=== PATIENT | female | born 1980 | race Two or more races ===

== ENCOUNTER 2017-02-22 15:54 | Emergency (ER) | payer SELFPAY ==
[~2017-02-22] VITALS: Ht 157.5 cm; Wt 54.4 kg
[2017-02-22 16:02] VITALS: BP 138/88
[2017-02-22 17:59] LABS: APPEARANCE,URINE CLEAR; KETONES,URINE NEGATIVE (NEGATIVE); LEUKOCYTE ESTERASE ,URINE NEGATIVE (NEGATIVE); NITRITE,URINE NEGATIVE (NEGATIVE); PH,URINE 6 (4.5-8.0); PROTEIN,URINE NEGATIVE (NEGATIVE); UROBILINOGEN,URINE NORMAL MG/DL (0.0-1.0)
[2017-02-22 18:04] LABS: EOSINOPHILS % (AUTO) 0.8 % (0.0-3.0); LYMPHOCYTES % (AUTO) 14.2 % (20.0-45.0); MEAN CORPUSCULAR HGB CONC 32.1 G/DL (32.0-36.0); MEAN CORPUSCULAR VOLUME 97 FL (80-99); MEAN PLATELET VOLUME 5.4 FL (6.5-10.1); MONOCYTES % (AUTO) 6.3 % (1.0-10.0); NEUTROPHILS % (AUTO) 77.7 % (45.0-75.0); PLATELET COUNT 386 K/UL (150-450); RED CELL DISTRIBUTION WIDTH 11.2 % (11.6-14.8)
[2017-02-22 18:05] LABS: RBC,URINE 0-2 /HPF (0 - 2); SQUAMOUS EPITHELIAL CELL,UR OCCASIONAL /LPF (NONE/OCC); WBC,URINE 0-2 /HPF (0 - 2)
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
[2017-02-22 19:02] LABS: ALANINE AMINOTRANSFERASE 24 U/L (12-78); ALCOHOL 25 mg/dL; ANION GAP 13 mmol/L (5-15); ASPARTATE AMINO TRANSFERASE 19 U/L (15-37); CALCIUM 9.3 MG/DL (8.5-10.1); CARBON DIOXIDE 22 MMOL/L (21-32); CHLORIDE 105 MMOL/L (98-107); CREATININE 0.6 MG/DL (0.55-1.30); GLOMERULAR FILTRATION RATE > 60 mL/min (>60); POTASSIUM 3.6 MMOL/L (3.5-5.1); SODIUM 140 MMOL/L (136-145)
[2017-02-22 19:05] LABS: ACETAMINOPHEN < 10 MCG/ML (10-30)
[2017-02-23 03:15] VITALS: BP 0/0
== END 2017-02-22 18:45 | disposition left against medical advice (07) ==
LOC: EDBD 15:54 → EMR 17:22
DX: F91.9 Conduct disorder, unspecified (principal); S80.12XA Contusion of left lower leg, initial encounter; S80.11XA Contusion of right lower leg, initial encounter; Y08.89XA Assault by other specified means, initial encounter; Y92.89 Other specified places as the place of occurrence of the external cause
CPT/HCPCS: 36415; 80053; 80307; 81003; 81025; 85025; 99284; G0480; 80329

== ENCOUNTER 2017-02-28 10:40 | Emergency (ER) | payer SELFPAY ==
[2017-02-28] VITALS (20 sets, daily range): BP systolic 128–144; BP diastolic 76–92
[~2017-02-28] VITALS: Ht 157.5 cm; Wt 56.7 kg
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
[2017-02-28] MEDS ORDERED: LORazepam Inj 2mg/ml 1ml IV ONE (16:15)
[2017-02-28 16:51] LABS: BASOPHILS % (AUTO) 1.1 % (0.0-2.0); EOSINOPHILS % (AUTO) 1.6 % (0.0-3.0); LYMPHOCYTES % (AUTO) 19.6 % (20.0-45.0); MEAN CORPUSCULAR HEMOGLOBIN 31.7 PG (27.0-31.0); MEAN CORPUSCULAR HGB CONC 32.8 G/DL (32.0-36.0); MEAN CORPUSCULAR VOLUME 96 FL (80-99); MONOCYTES % (AUTO) 7.9 % (1.0-10.0); NEUTROPHILS % (AUTO) 69.8 % (45.0-75.0); PLATELET COUNT 389 K/UL (150-450); RED CELL DISTRIBUTION WIDTH 11.5 % (11.6-14.8); WHITE BLOOD COUNT 10.1 K/UL (4.8-10.8)
[2017-02-28 17:11] LABS: ALANINE AMINOTRANSFERASE 22 U/L (12-78); ALBUMIN/GLOBULIN RATIO 0.9 (1.0-2.7); ANION GAP 10 mmol/L (5-15); ASPARTATE AMINO TRANSFERASE 15 U/L (15-37); CALCIUM 9.3 MG/DL (8.5-10.1); CARBON DIOXIDE 28 MMOL/L (21-32); CHLORIDE 105 MMOL/L (98-107); CREATININE 0.7 MG/DL (0.55-1.30); GLOMERULAR FILTRATION RATE > 60 mL/min (>60); SODIUM 143 MMOL/L (136-145); TOTAL PROTEIN 7.9 G/DL (6.4-8.2)
[2017-02-28 17:18] LABS: ACETAMINOPHEN < 10 MCG/ML (10-30)
[2017-02-28 17:20] LABS: ALCOHOL < 3 mg/dL
[2017-03-01] VITALS: BP 129/80
[2017-03-01 05:00] VITALS: BP 124/66
[2017-03-01 08:23] VITALS: BP 120/65
[2017-03-01] MEDS ORDERED: LORazepam Inj 2mg/ml 1ml IV ONE (08:45)
[2017-03-01 13:29] VITALS: BP 122/68
[2017-03-01 13:57] VITALS: BP 122/68
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
== END 2017-03-01 15:00 | disposition home or self-care (01) ==
LOC: EDBD 10:40 → EMR 11:11
DX: Z00.8 Encounter for other general examination (principal); F32.9 Major depressive disorder, single episode, unspecified; T14.8XXA Other injury of unspecified body region, initial encounter; X58.XXXA Exposure to other specified factors, initial encounter; Y93.9 Activity, unspecified; Y99.9 Unspecified external cause status
CPT/HCPCS: 80053; 80307; 81025; 85025; 96361; 96374; 96376; 99285; G0480; 80329; 99284